=== PATIENT | male | born 1985 | race African-American/Black ===

== ENCOUNTER 2022-04-10 08:50 | Emergency (ER) | payer MEDICARE, MEDICAID, SELFPAY ==
--- NOTE | ~2022-04-10 | CT_ITS ---
EXAMINATION: CT brain wo con DATE: 04/10/2022 13:07 INDICATION: 6 months of head pain/headache TECHNIQUE: Computed tomography (CT) of the head was performed without intravenous contrast. Sagittal and coronal reconstructions were performed. The mA was adjusted according to patient size. Iterative reconstruction technique was employed. The dose-length product was 605.33 mGy-cm. COMPARISON: None FINDINGS: No acute intracranial hemorrhage, acute infarction or abnormal extra axial fluid collection. Ventricl es are normal and symmetric. No mass/mass effect. The orbits, paranasal sinuses and mastoid air cells are normal. IMPRESSION: 1. Normal head CT. Reviewed, dictated and finalized at location L. ANIC FOREMAN IMPRESSION: 1. Normal head CT.
--- NOTE | ~2022-04-10 | CT_ITS ---
EXAMINATION: CT cervical spine wo con DATE: 04/10/2022 13:07 INDICATION: Neck pain. TECHNIQUE: Computed tomography (CT) of the cervical spine was performed without intravenous contrast. Automated exposure control and iterative reconstruction technique were employed. The dose-length pro duct was 600.28 mGy-cm. COMPARISON: None FINDINGS: There is 8 degrees dextrocurvature of cervical spine. There is hypolordosis of cervical spi ne. Vertebral body heights are normal. There is mildly decreased disc height at C2-C3, moderately dec reased disc height at C3-C4, and mildly decreased disc height at C6-C7. The following disc levels are specifically discussed: C2-C3: There is severe right and mild left uncovertebral joint osteoarthritis. There is mild bilatera l facet joint osteoarthritis. There is mild right neural foraminal stenosis. There is no central sanaz l stenosis. C3-C4: There is mild bilateral uncovertebral joint osteoarthritis. There is mild bilateral facet join t osteoarthritis. There is mild left neural foraminal stenosis. There is no central canal stenosis. C4-C5: There is mild bilateral uncovertebral joint osteoarthritis. There is no facet joint osteoarthr itis. There is mild bilateral neural foraminal stenosis. There is no central canal stenosis. C5-C6: There is no uncovertebral joint osteoarthritis. There is no facet joint osteoarthritis. There is no neural foraminal stenosis. There is no central canal stenosis. C6-C7: There is mild right and moderate left uncovertebral joint osteoarthritis. There is mild bilate ral facet joint osteoarthritis. There is mild left neural foraminal stenosis. There is mild central c anal stenosis. C7-T1: There is no uncovertebral joint osteoarthritis. There is moderate bilateral facet joint osteoa rthritis. There is no neural foraminal stenosis. There is no central canal stenosis. IMPRESSION: 1. Moderate cervical spondylosis. Reviewed, dictated and finalized at location A. ITORY SALES EXECUTIVE
--- NOTE | ~2022-04-10 | XR_ITS ---
EXAMINATION: XR knee RT min 4V DATE: 04/10/2022 13:33 INDICATION: Right knee pain. TECHNIQUE: 4 views of right knee were obtained. COMPARISON: None. FINDINGS: Bone alignment is normal. No fracture. There is mild tricompartmental osteoarthritis charac terized by tiny marginal osteophytes. There is ossification of medial collateral ligament proximally. No knee joint effusion. IMPRESSION: 1. Mild right knee osteoarthritis. Reviewed, dictated and finalized at location A. COMPLIANCE SPECIALIST
--- NOTE | ~2022-04-10 | XR_ITS ---
EXAMINATION: XR knee LT min 4V DATE: 04/10/2022 13:33 INDICATION: Left knee pain. TECHNIQUE: 4 views of left knee were obtained. COMPARISON: None. FINDINGS: Bone alignment is normal. No fracture. There is mild tricompartmental osteoarthritis charac terized by tiny osteophytes. No joint space narrowing. No knee joint effusion. IMPRESSION: 1. Mild left knee osteoarthritis. Reviewed, dictated and finalized at location A. LE BAR MOLDER
--- NOTE | ~2022-04-10 | XR_ITS ---
EXAMINATION: XR lumbar spine min 4V DATE: 04/10/2022 13:33 INDICATION: Low back pain for 6 months. TECHNIQUE: 5 views of lumbar spine were obtained. COMPARISON: Lumbar spine radiographs 01/09/2006 FINDINGS: There is 3 degrees dextrocurvature of lumbar spine. There is mild chronic anterior wedging of T10-T12 vertebral bodies. There is mildly decreased disc height at L4-L5. There is severely decrea sed disc height at L5-S1 with endplate remodeling. There is multilevel mild facet joint osteoarthriti s. IMPRESSION: 1. Severe lower lumbar spondylosis. Reviewed, dictated and finalized at location A. NCIAL INSTITUTION VICE PRESIDENT
[2022-04-10 09:01] VITALS: BP 146/86; PULSE 99; RESP 16; TEMP 36.5; O2SAT 100
--- NOTE | 2022-04-10 10:47 | PC.NURSE ---
Ambulatory to room with steady gait. Eating chips on arrival to room. In no distress.
--- NOTE | 2022-04-10 12:55 | ED.BACK ---
HPI - Back Pain/Injury General Chief Complaint: Back Pain/Injury Stated Complaint: knee, back and head pain Time Seen by Provider: 04/10/22 11:27 Source: patient Mode of arrival: ambulatory Limitations: no limitations History of Present Illness HPI Narrative: Patient is a 36 y/o male, w/ PMHx of schizophrenia, who presents to the ED with multiple complaints. Patient reports having pain in his bilateral knees for the past 6 months - 1 year. He states pain is intermittent. Denies injury. He has been using Diclofenac topical gel w/o much relief. He also reports having pain in his lower back and intermittent headaches for the past 1-2 years. Patient has not been evaluated for these symptoms. He denies any worsening of symptoms recently, but just wanted to be evaluated. He has not tried anything for pain today. Patient denies CP, SOB, vision changes, fevers, cough or cold sx's, abdominal pain, N/V, incontinence, numbness, joint swelling. Related Data Allergies Allergy/AdvReac Type Severity Reaction Status Date / Time meloxicam Allergy Dyspnea / Verified 04/10/22 10:52 SOB Review of Systems Review of Systems: CONSTITUTIONAL: Denies fever, chills, or sweats. EYES: Denies visual changes. CARDIOVASCULAR: Denies chest pain. RESPIRATORY: Denies dyspnea. GASTROINTESTINAL: Denies abdominal pain, nausea, vomiting. GENITOURINARY: Denies dysuria or hematuria. SKIN: Denies rash or itching. MUSCULOSKELETAL: See HPI. NEUROLOGIC: See HPI. All systems reviewed & are unremarkable except as noted in HPI and below PMFSH Past Medical History Medical History (Updated 04/10/22 @ 15:44 by Sylvia Mcclendon PA-C) Schizophrenia Surgical History Surgical History (Updated 04/10/22 @ 15:44 by Sylvia Mcclendon PA-C) No pertinent past surgical history Social History Social History (Updated 04/10/22 @ 15:44 by Sylvia Mcclendon PA-C) Smoking status: Never smoker Exam Narrative: GENERAL: Well appearing, morbidly obese, non-toxic, in no acute distress. HEAD: Normocephalic, atraumatic. EYES: PERRLA/EOMI, conjunctiva clear. NECK: Supple. No adenopathy, no masses. Full ROM. RESPIRATORY: Airway patent, respirations nonlabored. Clear to auscultation bilaterally, no rales, rhonchi, wheezing. CARDIOVASCULAR: Regular rate and rhythm without murmurs, rubs, or gallops. Peripheral pulses 2+ and equal bilaterally. ABDOMINAL: Soft, nontender, nondistended, no hepatosplenomegaly. Normoactive BS. MUSCULOSKELETAL: Moves all extremities. Strength/ROM intact without gross deformities. No TTP over anterior knees bilaterally. No edema. No redness or warmth bilaterally. No calf tenderness. No lower extremity edema. Minimal midline lumbar spinal tenderness. No significant midline tenderness in cervical or thoracic spine. No palpable deformities or step offs. SKIN: Warm, dry, normal color. No rashes. NEURO: A&O X3. Speech clear. Cranial nerves II-XII grossly intact. Steady gait. No ataxic movements. No focal deficits. PSYCHIATRIC: Somewhat flat affect. Normal interaction. Course Vital Signs Vital signs: Vital Signs Temperature 97.7 F 04/10/22 09:01 Pulse Rate 99 04/10/22 09:01 Respiratory Rate 16 04/10/22 09:01 Blood Pressure 146/86 H 04/10/22 09:01 Pulse Oximetry 100 04/10/22 09:01 Oxygen Delivery Room Air 04/10/22 09:01 Temperature 97.7 F 04/10/22 09:01 Pulse Rate 99 04/10/22 09:01 Respiratory Rate 16 04/10/22 09:01 Blood Pressure 146/86 H 04/10/22 09:01 Pulse Oximetry 100 04/10/22 09:01 Oxygen Delivery Room Air 04/10/22 09:01 MDM - Back Pain/Injury MDM Narrative Medical decision making narrative: Patient presented to ED with multiple complaints, various areas of pain, ongoing over the last 6 months to 2 years. No worsening of symptoms today, patient just decided to be evaluated. Vitals stable. Exam unremarkable. No redness, warmth, swelling, or tenderness of knees or lower extremities bilater
[2022-04-10 14:02] LABS: Basophils Percent Auto 0.7 % (0.2-1.2); Eosinophils Absolute Auto 0.2 K/mm3 (0-0.3); Eosinophils Percent Auto 4.7 % (0-4.4); Hematocrit 39.8 % (42.0-52.0); Hemoglobin 12.9 g/dL (14.0-18.0); Immature Granulocyte Absolute 0.01 K/mm3 (0.00-0.031); Immature Granulocyte Percent A 0.2 % (0-0.5); Lymphocytes Absolute Auto 1.91 K/mm3 (0.9-3.2); Lymphocytes Percent Auto 42.7 % (18.3-44.2); Mean Corpuscular HGB Conc 32.4 g/dl (32-36); Mean Corpuscular Volume 92.6 fl (80-100); Mean Platelet Volume 9.7 fl (7.4-10.4); Monocytes Absolute Auto 0.5 K/mm3 (0.1-0.6); Monocytes Percent Auto 11.4 % (2.6-8.5); Neutrophils Absolute Auto 1.8 K/mm3 (1.3-6.7); Neutrophils Percent Auto 40.3 % (45.5-73.1); Platelet Count Result 228 k/mm3 (150-375); Red Cell Distribution Width 15.1 % (11.5-14.5); White Blood Count 4.5 K/mm3 (4.5-10.0)
[2022-04-10 14:12] LABS: Alanine Aminotransferase 85 U/L (6-50); Albumin Level 3.5 g/dL (3.5-5.1); Alkaline Phosphatase 63 U/L (38-126); Anion Gap 4 mmol/L (8-16); Aspartate Amino Transferase 64 U/L (17-59); Bilirubin,Total 0.3 mg/dL (0.2-1.3); Blood Urea Nitrogen 9 mg/dL (9-20); Calcium 8.6 mg/dL (8.4-10.2); Carbon Dioxide 25 mmol/L (22-30); Chloride 111 mmol/L (98-107); Estimated CRCL calculation 186 ml/min; Estimated Glomerular Filt Rate > 60; Glucose 118 mg/dL (65-110); Potassium 3.8 mmol/L (3.4-5.0); Sodium 140 mmol/L (137-145)
[2022-04-10] MEDS: IBUPROFEN 600 MG TABLET PO (15:39)
== END 2022-04-10 15:48 | disposition home or self-care (01) ==
PROVIDERS: Emergency Provider Physician Assistant; PCP Internal Medicine
DX: M17.0 Bilateral primary osteoarthritis of knee (principal); M54.50 Low back pain, unspecified; R51.9 Headache, unspecified; E66.01 Morbid (severe) obesity due to excess calories; Z68.41 Body mass index [BMI] 40.0-44.9, adult
CPT/HCPCS: 36415; 70450; 72110; 72125; 73564; 80053; 85025; 99284; A9270

== ENCOUNTER 2023-10-27 22:38 | Emergency (ER) | payer MEDICARE, SELFPAY ==
[2023-10-27 22:45] VITALS: BP 145/94; PULSE 88; RESP 18; TEMP 36.2; O2SAT 97
[2023-10-28 01:18] VITALS: BP 132/72; PULSE 77; RESP 16; RESP 17; O2SAT 96; O2SAT 97
[2023-10-28] MEDS: ONDANSETRON HCL ODT 4 MG TABLET PO (01:32)
[2023-10-28] MEDS: predniSONE 20 MG TABLET 40 MG PO (01:32)
[2023-10-28] MEDS: ACETAMINOPHEN 500 MG TABLET 1000 MG PO (01:32)
[2023-10-28] MEDS: ALBUTEROL SULFATE NEB 2.5 MG/3 ML INH 15 MG INHALATION (01:35)
[2023-10-28] MEDS: IPRATROPIUM BR 0.02% INH SOLN 0.5 MG/2.5 ML VIAL 1 MG INHALATION (01:35)
[2023-10-28 01:45] VITALS: PULSE 79; RESP 18
[2023-10-28 02:21] LABS: Influenza A QL RT-PCR Negative (Negative); Influenza B QL RT-PCR Negative (Negative); RSV RNA, RT-PCR Negative (Negative); SARS-CoV-2 RNA PCR Negative (Negative)
--- NOTE | 2023-10-28 02:58 | ED.GENADULT ---
HPI - General Adult General Chief complaint: Unspecified Stated complaint: bodyaches Time Seen by Provider: 10/28/23 01:16 History of Present Illness HPI narrative: Patient presenting with body aches, nausea, cough for almost 2 weeks. Daily smoker. Related Data Allergies Allergy/AdvReac Type Severity Reaction Status Date / Time meloxicam Allergy Dyspnea / Verified 10/28/23 01:17 SOB Review of Systems Review of Systems: All systems reviewed & are unremarkable except as noted in HPI and below PMFSH Past Medical History Medical History (Updated 10/28/23 @ 03:11 by Zoë Fonseca MD) Schizophrenia Surgical History Surgical History (Updated 04/10/22 @ 15:44 by Sylvia Mcclendon PA-C) No pertinent past surgical history Social History Social History (Updated 04/10/22 @ 15:44 by Sylvia Mcclendon PA-C) Smoking status: Never smoker Exam Narrative: EXAMINATION OF ORGAN SYSTEMS/BODY AREAS: Constitutional: Vital signs per nursing GENERAL: Sleepy, does not appear ill HEAD: Normal with no signs of head trauma. EYES: EOMI, conjunctiva normal ENT: Hearing grossly intact LUNGS: Wheezing bilaterally HEART: [Regular rate and rhythm] ABD: [Soft], [nontender to palpation] EXT: Normal range of motion SKIN: [No rashes or lesions.] NEURO: [Sleepy but wakes up to answer questions. No gross focal sensory or strength deficits.] PSYCH: Normal affect Course Vital Signs Vital signs: Vital Signs Temperature 97.2 F L 10/27/23 22:45 Pulse Rate 88 10/27/23 22:45 Respiratory Rate 18 10/27/23 22:45 Blood Pressure 145/94 H 10/27/23 22:45 Pulse Oximetry 97 10/27/23 22:45 Oxygen Delivery Room Air 10/27/23 22:45 Temperature 97.2 F L 10/27/23 22:45 Pulse Rate 79 10/28/23 01:45 Respiratory Rate 18 10/28/23 01:45 Blood Pressure 132/72 10/28/23 01:18 Pulse Oximetry 96 10/28/23 01:18 Oxygen Delivery Room Air 10/27/23 22:45 Medical Decision Making [facility] Narrative Medical decision making narrative: ED COURSE AND MEDICAL DECISION MAKIN-year-old patient with acute dyspnea and wheezing likely due to acute COPD exacerbation or acute bronchitis based on history and exam. Patient is hemodynamically stable. Nebulizer treatments are started and steroids given orally. Patient is sleepy with states that they had just taken sedating medications before coming here. Patient monitored in the ED for a couple of hours and on reevaluation is feeling significantly better. No respiratory distress or accessory muscle use. Good air movement bilateral lungs. Prescriptions for [albuterol and steroid course] provided. He is given strict return precautions and patient is discharged in stable/improved condition. Vital Signs Vital Signs: Vital Signs Temperature 97.2 F L 10/27/23 22:45 Pulse Rate 88 10/27/23 22:45 Respiratory Rate 18 10/27/23 22:45 Blood Pressure 145/94 H 10/27/23 22:45 Pulse Oximetry 97 10/27/23 22:45 Oxygen Delivery Room Air 10/27/23 22:45 Temperature 97.2 F L 10/27/23 22:45 Pulse Rate 79 10/28/23 01:45 Respiratory Rate 18 10/28/23 01:45 Blood Pressure 132/72 10/28/23 01:18 Pulse Oximetry 96 10/28/23 01:18 Oxygen Delivery Room Air 10/27/23 22:45 Lab Data Labs: Lab Results 10/28/23 Range/Units 01:29 Influenza A (RT-PCR) Negative (Negative) Influenza B (RT-PCR) Negative (Negative) RSV (RT-PCR) Negative (Negative) SARS-CoV-2 RNA (RT-PCR) Negative (Negative) Discharge Plan Discharge Clinical Impression: Acute bronchitis Patient Disposition: Home, Self-Care Condition: Stable Instructions: Antibiotic Form, Acute Bronchitis (ED) Additional Instructions: Please stop smoking cigarettes. Follow up with primary care doctor, come back to the ER for any further issues. Take the medications as prescribed Prescriptions: New prednisone 20 mg tablet 40 mg PO DAILY 5 Days
[2023-10-28 03:20] VITALS: BP 149/83; PULSE 80; RESP 17; TEMP 36.7; O2SAT 100
== END 2023-10-28 03:22 | disposition home or self-care (01) ==
PROVIDERS: Emergency Provider Emergency Medicine; PCP Internal Medicine
DX: J20.9 Acute bronchitis, unspecified (principal); Z20.822 Contact with and (suspected) exposure to COVID-19; F17.210 Nicotine dependence, cigarettes, uncomplicated
CPT/HCPCS: 87637; 94640; 99283; A9270; J7512

== ENCOUNTER 2023-11-20 21:13 | Emergency (ER) | payer MEDICARE, SELFPAY ==
--- NOTE | ~2023-11-20 | XR_ITS ---
EXAMINATION: XR knee LT min 4V DATE: 11/20/2023 21:36 INDICATION: Left knee pain. TECHNIQUE: 4 views of left knee were obtained. COMPARISON: Left knee radiographs 04/10/2022 FINDINGS: Alignment is normal. No fracture. There is mild tricompartmental osteoarthritis. There is a small knee joint effusion. IMPRESSION: 1. Mild left knee osteoarthritis. 2. Small left knee joint effusion. Reviewed, dictated and finalized at location A.
[2023-11-20 21:43] VITALS: BP 150/90; PULSE 88; RESP 18; TEMP 36.4; O2SAT 99
--- NOTE | 2023-11-21 01:39 | PC.NURSE ---
Addendum entered by Natividad Estevez RN 11/21/23 01:41: Pt was also not here when called for registration earlier. Assume pt LWBS. Original Note: No answer when called for VS.
== END 2023-11-21 01:39 | disposition left against medical advice (07) ==
LOC: ANHED 11-21 01:46
PROVIDERS: Emergency Provider Emergency Medicine
DX: M25.562 Pain in left knee (principal); Z53.21 Procedure and treatment not carried out due to patient leaving prior to being seen by health care provider
CPT/HCPCS: 73564; 99199

== ENCOUNTER 2023-12-21 19:48 | Emergency (ER) | payer MEDICARE, SELFPAY ==
[2023-12-21 19:50] VITALS: BP 149/95; PULSE 102; RESP 16; TEMP 37.1; O2SAT 97
[2023-12-21 20:30] LABS: Add Urine Microscopic? YES; Appearance Urine Clear (Clear); Bacteria Urine None Seen /hpf; Bilirubin Urine Negative (Negative); Blood Urine Negative (Negative); Color Urine Yellow (Yellow); Glucose Urine UA Negative (Negative); Ketones Urine Negative (Negative); Leukocyte Esterase Ur 1+ LEU/UL (Negative); Nitrate Urine Negative (Negative); Non Pathogenic Casts 0-2; Protein Urine Negative (Negative); RBC Urine 0-2 /hpf (0-2); Specific Grav Ur 1.013 (1.001-1.035); Squamous Epithelial Cell Urine None Seen /hpf (Few); Urobilinogen Urine 0.2 mg/dL (<2.0); pH Urine 7.5 (5.0-9.0)
[2023-12-21 21:04] LABS: Basophils Percent Auto 0.3 % (0.2-1.2); Eosinophils Absolute Auto 0.3 K/mm3 (0-0.3); Eosinophils Percent Auto 3.6 % (0-4.4); Hematocrit 38.6 % (42.0-52.0); Hemoglobin 12.5 g/dL (14.0-18.0); Immature Granulocyte Absolute 0.02 K/mm3 (0.00-0.031); Immature Granulocyte Percent A 0.3 % (0-0.5); Lymphocytes Percent Auto 30.6 % (18.3-44.2); Mean Corpuscular HGB Conc 32.4 g/dl (32-36); Mean Corpuscular Hemoglobin 30.2 pg (26-34); Mean Corpuscular Volume 93.2 fl (80-100); Mean Platelet Volume 9.9 fl (7.4-10.4); Monocytes Absolute Auto 0.6 K/mm3 (0.1-0.6); Neutrophils Absolute Auto 3.9 K/mm3 (1.3-6.7); Neutrophils Percent Auto 57.2 % (45.5-73.1); Platelet Count Result 263 k/mm3 (150-375); Red Blood Count 4.14 M/mm3 (4.6-6.20); Red Cell Distribution Width 15.1 % (11.5-14.5); White Blood Count 6.9 K/mm3 (4.5-10.0)
[2023-12-21 21:14] LABS: Alanine Aminotransferase 19 U/L (6-50); Albumin Level 3.8 g/dL (3.5-5.1); Alkaline Phosphatase 74 U/L (38-126); Anion Gap 6 mmol/L (4-12); Aspartate Amino Transferase 23 U/L (17-59); Bilirubin,Total 0.2 mg/dL (0.2-1.3); Blood Urea Nitrogen 11 mg/dL (9-20); Carbon Dioxide 26 mmol/L (22-30); Chloride 104 mmol/L (98-107); Estimated Glomerular Filt Rate > 60; Glucose 168 mg/dL (65-110); Lipase 37 U/L (23-300); Potassium 3.9 mmol/L (3.4-5.0); Sodium 136 mmol/L (137-145)
--- NOTE | 2023-12-21 21:22 | ED.GENADULT ---
HPI - General Adult General Chief complaint: Unspecified Stated complaint: invisible feces , clear BM Time Seen by Provider: 12/21/23 19:56 Source: patient Mode of arrival: ambulatory Limitations: no limitations History of Present Illness HPI narrative: 38-year-old with a history of schizophrenia here with a complaint of upper abdominal pain for past 6 months. He states he is bloated at times. Patient when ever he tries to have BM , nothing come out feels like gas . all these symptoms are on going for quite some time.He also headache ,leg pain and knee pain Onset (ago): unknown Location: head, abdomen and lower extremity Radiation: non-radiation Severity: moderate Quality: aching Relieving factors: none Exacerbating factors: none Associated symptoms: denies other symptoms Related Data Allergies Allergy/AdvReac Type Severity Reaction Status Date / Time meloxicam Allergy Dyspnea / Verified 12/21/23 19:58 SOB Review of Systems Review of Systems: All systems reviewed & are unremarkable except as noted in HPI and below Constitutional: Constitutional: Reports no additional constitutional complaints Eyes: Eyes: Reports no additional eye complaints ENT: Reports system reviewed and no additional complaints, except as documented Cardiovascular: Cardiovascular: Reports no additional cardiovascular complaints Respiratory: Respiratory: Reports no additional respiratory complaints Gastrointestinal: Gastrointestinal: Reports no additional gastrointestinal complaints Musculoskeletal: Musculoskeletal: Reports as per HPI Neurologic: Reports system reviewed and no additional complaints, except as documented Psychiatric: Psychiatric: Reports as per HPI [facility] Past Medical History Medical History Schizophrenia Surgical History Surgical History No pertinent past surgical history Social History Social History Smoking status: Never smoker Exam Narrative: GENERAL: WELL-APPEARING, MORBIDLY OBESE , AND IN NO ACUTE DISTRESS. HEAD: NORMOCEPHALIC, ATRAUMATIC. EYES: PERRLA AND EOMI. NECK: SUPPLE. CHEST: CLEAR TO AUSCULTATION. NO RESPIRATORY DISTRESS. HEART: REGULAR RATE AND RHYTHM. NO MURMUR HEARD. NORMAL PERIPHERAL PULSES. ABDOMEN: SOFT, NONTENDER, NONDISTENDED, NORMAL ACTIVE BOWEL SOUNDS. EXTREMITIES: NORMAL RANGE OF MOTION. NO EDEMA. SKIN: WARM, DRY, NO RASH. NEURO: NO FOCAL DEFICITS. ALERT AND ORIENTED X3. PSYCH: NORMAL MOOD AND AFFECT. Course Course Emergency Course: DISTRESS PATIENT COMFORTABLY RESTING ON BED IN NO DISCOMFORT DID EXPLAIN TO HIM ABOUT HIS LAB WORK RELATED ADVISED HIM TO CONTINUE TO TAKE NEXIUM PRESCRIBED, FOLLOW-UP WITH HIS PRIMARY DOCTOR IN Vital Signs Vital signs: Vital Signs Temperature 37.1 C 12/21/23 19:50 Pulse Rate 102 H 12/21/23 19:50 Respiratory Rate 16 12/21/23 19:50 Blood Pressure 149/95 H 12/21/23 19:50 Pulse Oximetry 97 12/21/23 19:50 Temperature 37.1 C 12/21/23 19:50 Pulse Rate 102 H 12/21/23 19:50 Respiratory Rate 16 12/21/23 19:50 Blood Pressure 149/95 H 12/21/23 19:50 Pulse Oximetry 97 12/21/23 19:50 Medical Decision Making MDM Narrative Medical decision making narrative: His foot 38-year-old with a history of schizophrenia presents with multiple complaints however 1 of his main complaint is upper abdominal pain will do abdominal workup. My differential) gastritis, pancreatitis, gallbladder disease. Could be nonspecific Vital Signs Vital Signs: Vital Signs Temperature 37.1 C 12/21/23 19:50 Pulse Rate 102 H 12/21/23 19:50 Respiratory Rate 16 12/21/23 19:50 Blood Pressure 149/95 H 12/21/23 19:50 Pulse Oximetry 97 12/21/23 19:50 Temperature 37.1 C 12/21/23 19:50 Pulse Rate 102 H 12/21/23 19:50 Respiratory Rate 16 12/21/23 19:50
== END 2023-12-21 22:17 | disposition home or self-care (01) ==
PROVIDERS: Emergency Provider Family Medicine
DX: K21.9 Gastro-esophageal reflux disease without esophagitis (principal)
CPT/HCPCS: 36415; 80053; 81001; 83690; 85025; 87086; 99283

== ENCOUNTER 2024-08-01 19:51 | Emergency (ER) | payer MEDICARE, MEDICAID, SELFPAY ==
--- NOTE | ~2024-08-01 | XR_ITS ---
AP view of the pelvis and AP and lateral views of the right hip Clinical history: Pain Findings: No acute fracture or dislocation is seen. Osseous alignment is anatomic. Bilateral hip and SI joint spaces are preserved. Soft tissues are unremarkable. Impression: No significant abnormality is seen. Reviewed, dictated and finalized at [facility]. Impression: No significant abnormality is seen.
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
--- NOTE | ~2024-08-01 | CT_ITS ---
Noncontrast CT scan of the cervical spine Technique: Multiple contiguous axial [address] images of the cervical spine were obtained and rec onstructed in 2D sagittal and coronal planes on the acquisition scanner. Dose reduction technique was used on this scan by utilizing automated exposure control, adjustment of the mA and/or kV according to patient size. The dose-length product (DLP) was 653.86 mGy-cm. Clinical History: Pain COMPARISON: 04/10/2022 Findings: No fractures or dislocations. There is straightening of the normal cervical lordosis. Ther e is moderate degenerative disc change at C3-C4. There is probable disc osteophyte complex at C3-C4 w ith mild to moderate canal stenosis at this level. No prevertebral soft tissue swelling. Impression: No fracture or subluxation of the cervical spine. Degenerative change at C3-C4 level, as above. Reviewed, dictated and finalized at [facility]. Impression: No fracture or subluxation of the cervical spine. Degenerative change at C3-C4 level, as above.
--- NOTE | ~2024-08-01 | XR_ITS ---
Right Knee Technique: AP, lateral, and oblique views were obtained. Clinical History: Pain Findings: No fracture or dislocation is seen. Osseous alignment is anatomic. Joint spaces are preserv ed without degenerative or erosive change. Soft tissues are unremarkable. No joint effusion is seen. Impression: Unremarkable right knee radiographs. Reviewed, dictated and finalized at [facility]. Impression: Unremarkable right knee radiographs.
--- OUTSIDE RECORDS SUMMARY | 2024-08-01 19:54 | XMS_ITS | Clinical Summary ---
Author Organization [facility] Address [address] [place] [address] Care Team Providers Care Slab Grinder Name Role Phone Andrey Boyd MD Primary Care Provider + Allergies Active Allergy Reactions Criticality Noted Date Comments Meloxicam Angioedema High 02/06/2022 Medications albuterol HFA (PROVENTIL HFA,VENTOLIN HFA,PROAIR HFA) 90 mcg/actuation inhalerIndicati ons:Viral URI with cough Inhale 2 puffs every 6 (six) hours as needed for shortness of breath 18 g Active Active Problems No known active problems Social History Tobacco Use Types Packs/Day Years Used Date Smoking Tobacco: Every Day Cigarettes Tobacco Cessation:Ready to Q uit: No; Counseling Given: Yes Sex and Gender Information Value Date Recorded Sex Assigned at Not on file Legal Sex Male 9:09 AM ELEVATOR ATTENDANT Gender Identity Not on file Sexual Orientation Not on file Obstetrics History Last Filed Vital Signs Vital Sign Reading Time Taken Comments Blood Pressure 122/80 02/06/2022 12:13 PM ELEVATOR ATTENDANT Pulse 76 02/06/2022 12:13 PM ELEVATOR ATTENDANT Temperature 36.9 C (98.4 F) 02/06/2022 12:13 PM ELEVATOR ATTENDANT Respiratory Rate 16 02/06/2022 12:13 PM ELEVATOR ATTENDANT Oxygen Saturation 98% 02/06/2022 12:13 PM ELEVATOR ATTENDANT Inhaled Oxygen Concentration - - Weight 135.6 kg (299 lb) 02/06/2022 12:13 PM ELEVATOR ATTENDANT Height 182.9 cm (6') 02/06/2022 12:13 PM ELEVATOR ATTENDANT Body Mass Index 40.55 02/06/2022 12:13 PM ELEVATOR ATTENDANT Plan of Treatment Health Maintenance Due Date Last Done Comments Depression Screening 1985 Hepatitis C Screening 1985 DTaP/Tdap/Td Vaccine (6 - Tdap) 1996 09/29/1990, 11/25/1987, 03/26/1986, Additional history exists Varicella Vaccines (1 of 2 - 13+ 2-dose series) 1998 Regular Well Visit/Exam 18-64 09/22/2003 Pneumococcal vaccine <65 (1 of 2 - PCV) 2004 Influenza Vaccine (Season Ended) 2024 Hepatitis B Screening Completed 02/23/2024, 000 HPV Vaccines Aged Out No longer eligi ble based on patient's age to complete this topic Insurance MEDICARE ADVANTAGE MEDICARE ADVANTAGE Care Teams Slab Grinder Relationship Specialty Start Date End Date Andrey Boyd MD [address] [id number] PCP - General Internal Medicine 02/06/22
--- OUTSIDE RECORDS SUMMARY | 2024-08-01 19:54 | XMS_ITS | Patient Health Record ---
Author Organization [facility] Address [address] [place] [address] Care Team Providers Care Ancillary Specialist Name Role Phone Nasreen Hook Primary Care Provider [phone] Ignacia Lawton Unavailable [phone] Allergies Allergen (clinical drug ingredient) Drug/Non Drug Allergy documented on EMR Reaction Allergy Type Onset Date Status No Known Drug Allergy Unknown Drug Allergy Active Reason For Referral No Information Medications Medication SIG (Take, Route, Frequency, Duration) Notes Start Date End Date Status Famotidine 20 MG 2 tablet Orally Once a day Active Benztropine Mesylate 1 MG 1.5 tablet at bedtime Orally Once a day for 30 days Active PROzac 40 MG 2 capsule Orally Onc e a day for 30 days Active ZyPREXA 20 MG 1 tablet at bedtime Orally Once a day for 30 days Active traZODone HCl 100 MG 1 tablet at bedtime Orally Once a day for 30 days Active QUEtiapine Fumarate 50 MG 1 tablet morni ng and afternoon Orally twice a day for 30 days Active OLANZapine 2.5 MG 1 tablet Orally Once a day for 30 days 07/11/2023 Active OLANZapine 2.5 MG 1 tablet as needed Orally Once a day for 30 days As needed 10/03/2023 Active Social History Tobacco Use: Social History Observation Description Date Details (start date - stop date) Current Smoker NA - NA Sex Assigned At : Social History Observation Description Sex Assigned At Female Tobacco Control (Standard) Question Answer Notes Tobacco use: Current smoker How often do you smoke cigarettes? Every day How many cigarettes a day do you smoke? 11-20 Problems Problem Type SNOMED Code ICD Code Onset Dates Problem Status W/U Status Risk Notes Problem Tobacco user (427612022) Nicotine dependence, unspecified, uncomplicated (F17.200) Active confirmed Problem 44877061 Paranoid schizophrenia (F20.0) Active confirmed Problem Over weight (E66.3) Active confirmed Vital Signs Heart Rate 86 /min 07/09/2024 Temperature 97.4 degrees Fahrenheit 07/09/2024 Oximetry 97 % 07/09/2024 Blood pressure diastolic 76 mm Hg 07/09/2024 Height 72 in 07/09/2024 Blood pressure systolic 136 mm Hg 07/09/2024 Weight 425.6 lbs 07/09/2024 BMI 57.72 kg/m2 07/09/2024 Encounters Encounter Location Date Provider Diagnosis [facility] [address] [facility] [address] 10/03/2023 Nasreen Hook Paranoid schizophrenia F20.[address] [address] [place] [address] 12/26/2023 Nasreen Hook Paranoid schizophrenia F20.0 and Nicotine dependence, unspecified, uncomplicated F17.200 [facility] [place] [address] 04/16/2024 Nasreen Hook Paranoid schizophrenia F20.0 [address] [address] [place] [address] 07/09/2024 Nasreen Hook Paranoid schizophrenia F20.0 and Over weight E66.3 Assessments Encounter Date Diagnosis (ICD Code) Assessment Notes Treatment Notes Treatment Clinical Notes Section Notes 10/03/2023 Paranoid schizophrenia (ICD-10 - F20.0) Add an as needed dose of olanzapine to help with symptoms during the day. Reports it would be helpful to have, especially when at work. Continue other medications. May self-administer medications or be administered own oral medications per [place] protocols. Provided informed consent with understanding of side effects, adverse effects, risks and benefits as well as alternative treatments as previously discussed and with the above recommended medications & other aspects of the treatment program. Agrees to return sooner if symptoms worsen or suicidal or homicidal ideations occur. 12/26/2023 Paranoid schizophrenia (ICD-10 - F20.0) Increase Benztropine to 1.5 tabs at bedtime for side effects. Continue services as scheduled. Labs completed recently. May self-administer medications or be administered own oral medications per [place] protocols. Provided informed consent with understanding of side effects, adverse effects, risks and benefits as well as alternative treatments as previously discussed and with the above recommended medications & other aspects of the treatment program. Agrees to return sooner if symptoms worsen or suicidal or homicidal ideations occur. 04/16/2024 Paranoid schizophrenia (ICD-10 - F20.0) Continue current medications. Reviewed Prescription Monitoring program. Continue services as scheduled. Labs completed recently. May self-administer medications or be administered own oral medications per [place] protocols. Provided informed consent with understanding of side effects, adverse effects, risks and benefits as well as alternative treatments as previously discussed and with the above recommended medications & other aspects of the treatment program. Agrees to return sooner if symptoms worsen or suicidal or homicidal ideations occur. 07/09/2024 Paranoid schizophrenia (ICD-10 - F20.0) Needs a letter stating medication can cause sedation for work. Continue current medications. Continue services as scheduled. Labs completed recently. May self-administer medications or be administered own oral medications per [employer] protocols. Provided informed consent with understanding of side effects, adverse effects, risks and benefits as well as alternative treatments as previously discussed and with the above recommended medications & other aspects of the treatment program. Agrees to return sooner if symptoms worsen or suicidal or homicidal ideations occur. 07/09/2024 Over weight (ICD-10 - E66.3) 12/26/2023 Nicotine dependence, unspecified, uncomplicated (ICD-10 - F17.200) Plan Of Treatment No Information Insurance Providers Payer Name Payer Address Payer Phone Subscriber Number Group Number Insured Name Patient Relationship to Insured Coverage Start Date Coverage End Date [employer] [address] [address] [place] [address] [id number] Mati Singh Self - patient is the insured 3 3 [facility] Medicare Assure [address] [address] [place] [address] [id number] Mati Singh Self - patient is the insured [address] [place] [address] [id number] SinghBinduMati Self - patient is the insured 1 [address] [place] [address] [id number] Mati Singh Self - patient is the insured 4 [facility] [address] [address] [place] [address] [id number] Mati Singh Self - patient is the insured 9 3 MEDICARE PART A [address] [place] [phone] [id number] Mati Singh Self - patient is the insured 1 3 [facility] [address] [address] [place] [address] [id number] Mati Singh Self - patient is the insured 3 3 Medications Administered Medication Instructions Date of Administration Dosage Notes Invega Sustenna 09/29/2015 234 mg EXP: 03/18/17 Lot: [id number] Engineering Secretary: Aidin Patient tolerated injection well. Invega Sustenna 10/27/2015 234 mg EXP 05/2017 LOT 05/2017 TOWER TRUCK DRIVER: Aidin Pt tolerated injection well. No questions or concerns verbalized at this time. Invega Sustenna 11/22/2015 234 mg Exp: 05/2017 Lot: [id number] Engineering Secretary: Corrine Patient tolerated the injection well. Invega Sustenna 12/21/2015 234 mg Given in right deltoid per patient preference. Patient tolerated injection well. EXP 06/2017 LOT: [id number] Engineering Secretary: Aidin Invega Sustenna 01/20/2016 234 mg Engineering Secretary-Corrine Client tolerated injection well. Invega Sustenna 02/20/2016 234 mg Engineering Secretary-Corrine Client tolerated injection well. Invega Sustenna 10/23/2016 234 mg Engineering Secretary: Aidin Patient tolerated well. Invega Sustenna 04/25/2017 156 mg Manufact Corrinept tolerated well. Invega Sustenna 05/16/2017 234 mg Manufact Corrine pt tolerated well. Invega Sustenna 07/09/2017 234 mg Exp: 11/2018 Lot: [id number] Engineering Secretary: Corrine Pt tolerated the injection well and denies questions or concerns at this time. Invega Sustenna 01/02/2018 234 mg Engineering Secretary: Aidin Pt tolerated the injection well. Denies questions or concerns Invega Sustenna 01/30/2018 234 mg Engineering Secretary: Aidin Pt tolerated the injection well. Denies questions or concerns. Invega Sustenna 02/28/2018 234 mg Manufact Corrine, pt tolerated well. Invega Sustenna 03/27/2018 234 mg Manufact Corrine, pt tolerated well. Medical (General) History Surgical History Surgery Date(Month/Year) finger and toe surgery Hospitalization History Reason Date(Month/Year) mental health
--- OUTSIDE RECORDS SUMMARY | 2024-08-01 19:54 | XMS_ITS | Clinical Summary ---
Author Organization [facility] Address [address] [place] [address] Care Team Providers Care Crew Chief Name Role Phone Ashley Edmonds MD Primary Care Provider Source Comments [facility],non-owned Affiliates and Associated Physician Practices is amultiple site organization consisting of ambulatory clinics and hospital sitesin [place], [place], [place] and [place]. This disclosure is being madepursuant to the Care Everywhere program and may not contain all information available regarding this patient. Last updated 17.[facility] Allergies Active Allergy Reactions Criticality Noted Date Comments maple syrup [Other] Unknown 01/25/2019 Norepinephrine Dizziness 01/25/2019 Oat Grain (Diagnostic) Rash Medium 01/25/2019 Pork Derived Products Other 01/25/2019 Per patient causes worms Rice Unknown 01/25/2019 Soybean Allergy Cough 01/25/2019 Baldwin Rash Medium 01/25/2019 Wheat Bran Rash Medium 01/25/2019 Medications * Be aware that medications may not be up to date on this document. Alwaysverify current medications with the patient. amoxicillin (AMOXIL) 500 MG capsule Take 500 mg by mouth every 8 hours Active benztropine (COGENTIN) 1 MG tablet Take 1 mg by mouth once daily Active haloperidol (HALDOL) 0.5 MG tablet Take 0.5 mg by mouth every 6 hours as needed for Agitation Active levothyroxine (SYNTHROID) 25 MCG tablet Take 25 mcg by mouth daily before breakfast Active traZODone (DESYREL) 150 MG tablet Take 150 mg by mouth at bedtime Active meclizine (ANTIVERT) 25 MG tablet Take 1 tablet by mouth 3 times daily as needed for Dizziness 90 tablet 9 Active Active Problems Problem Noted Date Diagnosed Date Vertigo 01/25/2019 Social History Tobacco Use Types Packs/Day Years Used Date Smoking Tobacco: Every Day Cigarettes 1 15 Smokeless Tobacco: Never Alcohol Use Standard Drinks/Week Comments Not Currently 0 (1 standard drink = 0.6 oz pur e alcohol) AUDIT-C Answer Date Recorded Frequency of Alcohol Consumption Never 01/26/2019 Average Number of Drinks Patient declined 2018 Frequency of Binge Drinking Never 01/16 Sex and Gender Information Value Date Recorded Sex Assigned at Not on file Legal Sex Male 5:34 AM HEALTH AND SAFETY INSTRUCTOR Gender Identity Not on file Sexual Orientation Not on file Occupation Industry Job Start Date Job End Date DISABLED Not on file Not on file Not on file Last Filed Vital Signs Vital Sign Reading Time Taken Comments Blood Pressure 128/62 01/29/2019 12:00 PM HEALTH AND SAFETY INSTRUCTOR Pulse 59 01/29/2019 12:00 PM HEALTH AND SAFETY INSTRUCTOR Temperature 36.7 C (98.1 F) 01/29/2019 12:00 PM HEALTH AND SAFETY INSTRUCTOR Respiratory Rate 20 01/29/2019 12:00 PM HEALTH AND SAFETY INSTRUCTOR Oxygen Saturation 96% 01/29/2019 12:00 PM HEALTH AND SAFETY INSTRUCTOR Inhaled Oxygen Concentration - - Weight 163.3 kg (360 lb) 01/26/2019 12:52 AM HEALTH AND SAFETY INSTRUCTOR Height 182.9 cm (6') 01/26/2019 12:46 AM HEALTH AND SAFETY INSTRUCTOR Body Mass Index 48.82 01/26/2019 12:46 AM HEALTH AND SAFETY INSTRUCTOR Plan of Treatment Health Maintenance Due Date Last Done Comments DTAP/TDAP/TD VACCINES (1 - Tdap) 2004 HEPATITIS B VACCINE (1 of 3 - 19+ 3-dose series) 2004 PNEUMOCOCCAL VACCINE (1 of 2 - PCV) 2004 COVID-19 VACCINE ( - 2023-2 5 season) 2023 DEPRESSION SCREENING 03/18/2024 INFLUENZA VACCINE (Season Ended) 2024 ZOSTER VACCINE (1 of 2) 09/22/2035 HEPATITIS C SCREENING Completed 01/26/2019 HIV SCREENING Completed 01/26/2019 HIB VACCINE Aged Out No longer eligi ble based on patient's age to complete this topic HPV VACCINE Aged Out No longer eligi ble based on patient's age to complete this topic MENINGOCOCCAL (Group B) VACC INE SHARED DECISION-MAKING Aged Out No longer eligibl e based on patient's age to complete this topic MENINGOCOCCAL GROUPS A/C/Y/W VACCINE Aged Out No longer eligible b ased on patient's age to complete this topic Procedures Procedure Name Priority Date/Time Associated Diagnosis Comments HEPATITIS C AB SCREEN RFLX NAAT QUANT Routine 01/26/2019 10:55 AM HEALTH AND SAFETY INSTRUCTOR HIV-1 HIV-2 ANTIGEN/ANTIBODY Routine 01/26/2019 10:55 AM HEALTH AND SAFETY INSTRUCTOR from Last 3 Months or Most Recently Relevant to Health Maintenance Results * HIV-1 HIV-2 ANTIGEN/ANTIBODY (01/26/2019 10:55 AM HEALTH AND SAFETY INSTRUCTOR) HIV Antigen/Antibod y 1 & 2 Non-reacti ve Non-react nessa 01/26/2019 1:02 PM HEALTH AND SAFETY INSTRUCTOR [facility] Comment: Neither HIV-1 p24 Antigen nor HIV-1/HIV-2 Antibodies are detected. Blood BLOOD SPECIMEN / Unknown Lab Venipuncture / Unknown 01/26/2019 10:55 AM HEALTH AND SAFETY INSTRUCTOR 01/26/2019 12:00 PM HEALTH AND SAFETY INSTRUCTOR Silas Zhao MD LAB - HEMATOLOGY ORDERABLES Harriet l Result [address] [phone] * HEPATITIS C AB SCREEN RFLX NAAT QUANT (01/26/2019 10:55 AM HEALTH AND SAFETY INSTRUCTOR) Hepatitis C Antibody Non-react nessa Non-reac tive 01/26/2019 1:02 PM HEALTH AND SAFETY INSTRUCTOR [facility] Comment: Hepatitis C Antibody screen indicates no serologic evidence of past or current infection with Hepatitis C Virus. Patients with unexplained liver disease who are immunocompromised or suspected of having acute Hepatitis C infection may benefit from Nucleic Acid Test (SANDER) for Hepatitis C Viral RNA to confirm Hepatitis C status. Blood BLOOD SPECIMEN / Unknown Lab Venipuncture / Unknown 01/26/2019 10:55 AM HEALTH AND SAFETY INSTRUCTOR 01/26/2019 12:00 PM HEALTH AND SAFETY INSTRUCTOR Silas Zhao MD LAB - CHEMISTRY [place] [address], [facility] [phone] from Last 3 Months or Most Recently Relevant to Health Maintenance Insurance MEDICARE MEDICAID - [place] MEDICARE MEDICAID - [facility] Advance Directives * Full Code (Latest Code Status on File) Date Activated Date Inactivated Comments 01/26/2019 12:25 AM 01/29/2019 4:30 PM Care Teams Crew Chief Relationship Specialty Start Date End Date Ashley Edmonds MD [address] [place] [phone] PCP - General 01/27/19
--- OUTSIDE RECORDS SUMMARY | 2024-08-01 19:54 | XMS_ITS | Clinical Summary ---
Author Organization [facility] Address [address] [place] [address] Phone Care Team Providers Care Banquet Line Cook Name Role Phone Andrey Boyd MD Primary Care Provider [phone] Caitlin Patel MD Unavailable Allergies Active Allergy Reactions Criticality Noted Date Comments Food Unknown 01/25/2019 Meloxicam Other (see Comments) 08/25/2021 Patient stated that it stops his breathing Norepinephrine Other (see Comments) 01/25/2019 Oat Grain (Diagnostic) Rash Medium 01/25/2019 Pork-Derived Products Other (see Comments) 01/25/2019 Per patient causes worms Rice Unknown 01/25/2019 Soybean-Containing Drug Products Other (see Comments) 01/25/2019 Pinon Extract Rash Medium 01/25/2019 Wheat Rash Medium 01/25/2019 Medications FLUoxetine (PROzac) 20 MG Capsule 2 Active OLANZapine (ZYPREXA) 20 MG Tablet 2 Active traZODone (DESYREL) 50 MG Tablet 2 Active famotidine (PEPCID) 20 MG TabletIndication s:Gastroesophage al reflux disease with esophagitis without hemorrhage Take 1 Tablet by mouth 2 times daily. 180 Tablet 3 3 Active Diclofenac Sodium (VOLTAREN) 1 % GelIndications:A rthritis APPLY 2 GRAMS TOPICALLY TO THE AFFECTED AREA FOUR TIMES A DAY NEEDED FOR JOINT PAIN 100 g 1 3 Active ergocalciferol (VITAMIN D) 99871 UNIT CapsuleIndicatio ns:Low serum vitamin D TAKE 1 CAPSULE BY MOUTH EVERY WEEK 4 Capsule 2 3 Active Active Problems Problem Noted Date Diagnosed Date Arthritis 10/20/2021 Schizophrenia, unspecified 08/25/2021 Gastroesophageal reflux disease with esophagitis 08/25/2021 Immunizations Immunization Administration Dates Next Due Covid-19, Mrna, Lnp-s, Bival ent, Moderna, 50 Mcg or 25 mcg dose 12/28/2021 Covid-19, Mrna, Lnp-s, Pf, 1 00 Mcg Or 50 Mcg Dose (MODERNA) 02/01/2021 Hepatitis A Vaccine 01/29/2018 Influenza Vaccine, MDCK,quadrivalent, pres free 11/23/2021 Influenza, Seasonal, Injectable, Undefined 04/05 Family History Medical History Relation Name Comments No Known Problems Father No Known Problems Mother Relation Name Status Comments Father Alive Mother Alive Social History Tobacco Use Types Packs/Day Years Used Date Smoking Tobacco: Every Day Cigarettes 0.5 25 Started: 08/17/1999 Smokeless Tobacco: Former Tobacco Cessation:Ready to Q uit: No; Counseling Given: No Comments:4 cigarettes a day Alcohol Use Standard Drinks/Week Comments Not Currently 0 (1 standard drink = 0.6 oz pur e alcohol) PHQ-2 Answer Date Recorded Total Score - Questions 1-9 0 08/16 Sex and Gender Information Value Date Recorded Sex Assigned at Not on file Legal Sex Male 9:48 AM CDT Gender Identity Not on file Sexual Orientation Not on file Last Filed Vital Signs Vital Sign Reading Time Taken Comments Blood Pressure 124/84 05/14/2022 2:22 PM LEAN PROCESS DEPLOYMENT CONSULTANT Pulse 81 05/14/2022 2:22 PM LEAN PROCESS DEPLOYMENT CONSULTANT Temperature 36.7 C (98 F) 05/14/2022 2:22 PM LEAN PROCESS DEPLOYMENT CONSULTANT Respiratory Rate 20 05/14/2022 2:22 PM LEAN PROCESS DEPLOYMENT CONSULTANT Oxygen Saturation 98% 05/14/2022 2:22 PM LEAN PROCESS DEPLOYMENT CONSULTANT Inhaled Oxygen Concentration - - Weight 148.3 kg (327 lb) 05/14/2022 2:22 PM LEAN PROCESS DEPLOYMENT CONSULTANT Height 182.9 cm (6') 05/14/2022 2:22 PM LEAN PROCESS DEPLOYMENT CONSULTANT Body Mass Index 44.35 05/14/2022 2:22 PM LEAN PROCESS DEPLOYMENT CONSULTANT Plan of Treatment Health Maintenance Due Date Last Done Comments Hepatitis B Immunization (3 of 3 - Hep B Twinrix 3-dose series) 02/14/2023 09/14/2022, 08/03/2022 Influenza Immunization (#1) 2023 11/23/2021, 0 04/05/2017 SARS-COV-2 Immunization ( season) 2023 10/18/2022, 12/28/2021, 02/01/2021, Additional history exists Respiratory Syncytial Virus (RSV) Immunization (Adult) (1 - 1-dose 75+ series) 2060 Hepatitis C Virus (HCV) Screening Completed 01/26/2019 DTaP/Tdap/Td Immunization Discontinued 08/03/2022 TdaP Immunization Completed 08/03/2022 Pneumococcal Immunization Combined Aged Out 08/12/2022 No longer eligible based on patient's age to complete this topic Meningococcal Immunization (ACWY) Aged Out 10/23/2022 No longer eligible based on patient's age to complete this topic Rotavirus Immunization Aged Out No lo nger eligible based on patient's age to complete this topic Insurance MEDICARE C [employer] [place]ID [place] Care Teams Banquet Line Cook Relationship Specialty Start Date End Date Andrey Boyd MD [address] [place] [address] PCP - General Internal Medicine 08/25/21 Caitlin Patel MD [address] [address] Consulting Physician Psychiatry 08/25/21
--- OUTSIDE RECORDS SUMMARY | 2024-08-01 19:54 | XMS_ITS ---
Author Organization [facility] Address [address] [place] [address] Care Team Providers Care Chicken And Fish Cleaner Name Role Phone Nasreen Hook Primary Care Provider Ignacia Lawton Unavailable [phone] REASON FOR VISIT 3 Month Psych F/U & Med Refill Medications Medication SIG (Take, Route, Frequency, Duration) Notes Start Date End Date Status Benztropine Mesylate 1 MG 1.5 tablet at bedtime Orally Once a day for 30 days Active PROzac 40 MG 2 capsule Orally Onc e a day for 30 days Active ZyPREXA 20 MG 1 tablet at bedtime Orally Once a day for 30 days Active traZODone HCl 100 MG 1 tablet at bedtime Orally Once a day for 30 days Active Famotidine 20 MG 2 tablet Orally Once a day Active OLANZapine 2.5 MG 1 tablet Orally Once a day for 30 days 07/11/2023 Active OLANZapine 2.5 MG 1 tablet as needed Orally Once a day for 30 days As needed 10/03/2023 Active QUEtiapine Fumarate 50 MG 1 tablet morni ng and afternoon Orally twice a day for 30 days Active Social History Sex Assigned At : Social History Observation Description Sex Assigned At Female Encounters Encounter Location Date Provider Diagnosis [facility] [address] [place] [address] 03/12/2024 Nasreen Hook Paranoid schizophrenia F20.0 Assessments Encounter Date Diagnosis (ICD Code) Assessment Notes Treatment Notes Treatment Clinical Notes Section Notes 03/12/2024 Paranoid schizophrenia (ICD-10 - F20.0) Plan Of Treatment No Information Progress Notes * Mati SINGHDOB:[birth year] (38 yo M)Acc No.[id number]:03/12/2024 UNLOCKED PROGRESS NOTE Patient: Mati CHRIS Provider: Edmond Hook DNP, ZENAIDA, SANDRA :1985 A ge:38 Y S ex:Male(T) Date:03/12/2024 Phone: Address:[address] [place] [address] Subjective: * Chief Complaints: * 1 . 3 Month Psych F/U & Med Refill. * Medical History: * Medications: T aking ZyPREXA 20 MG Tablet 1 tablet at bedtime Orally Once a day , Taking traZODone HCl 100 MG Tablet 1 tablet at bedtime Orally Once a day , Taking Benztropine Mesylate 1 MG Tablet 1.5 tablet at bedtime Orally Once a day , Taking PROzac 40 MG Capsule 2 capsule Orally Once a day , Taking QUEtiapine Fumarate 50 MG Tablet 1 tablet morning and afternoon Orally twice a day , Taking OLANZapine 2.5 MG Tablet 1 tablet Orally Once a day , Taking OLANZapine 2.5 MG Tablet 1 tablet as needed Orally Once a day As needed, Taking Famotidine 20 MG Tablet 2 tablet Orally Once a day Objective: * Vitals: Assessment: * Assessment: 1. P aranoid schizophrenia - F20.0 (Primary) Plan: * Treatment: * * Electronic signature of Andree Hook on 08/01/2024 at 07:53 PM CDT Sign off status: Pending * Provider: Edmond Hook DNP, ZENAIDA, NETEZZA DEVELOPER Date: 05/13/2023 Generated for Printing/Faxing/eTransmitting on: 0 08/01/2024 07:53 PM CDT
--- OUTSIDE RECORDS SUMMARY | 2024-08-01 19:54 | XMS_ITS | CONTINUITY OF CARE DOCUMENT ---
Author Name pawan villalta Address Unknown Organization [facility] Address [address] [place] [address] Phone [phone] Care Team Providers Care R&D Engineer Name Role Phone Dominguez MCCRACKEN, Blanca Unavailable LADAN HUNT Unavailable LADAN HUNT Unavailable INSURANCE PROVIDERS Payer name Policy type / Coverage type [place] red democrat ID HE[employer] AND FAMILY SERVICES Medicaid 1 [id number] [place] MED[place] Medicare [id number]
--- OUTSIDE RECORDS SUMMARY | 2024-08-01 19:54 | XMS_ITS | Encounter Summary ---
Author Organization [facility] Address [address] [place] [address] Phone Care Team Providers Care Scruff Worker Name Role Phone Andrey Boyd MD Primary Care Provider [phone] Caitlin Patel MD Unavailable Reason for Visit * Reason Comments Medication Refill Encounter Details Date Type Department Care Team (Late st Contact Info) Description 06/20[facility] - Sujit [address] [place] [phone] Andrey Boyd MD [address] [place] [address] Medication Refill Social History Tobacco Use Types Packs/Day Years Used Date Smoking Tobacco: Every Day Cigarettes 0.5 25 Started: 08/17/1999 Smokeless Tobacco: Former Comments:4 cigarettes a day Alcohol Use Standard Drinks/Week Comments Not Currently 0 (1 standard drink = 0.6 oz pur e alcohol) PHQ-2 Answer Date Recorded Total Score - Questions 1-9 0 08/16 Sex and Gender Information Value Date Recorded Sex Assigned at Not on file Legal Sex Male 9:48 AM CDT Gender Identity Not on file Sexual Orientation Not on file documented as of this encounter Miscellaneous Notes * Telephone Encounter - Anoop Gavin RN - 06/24/2023 8:16 AM CDT Attempted to contact patient. No answer, left message. Letter mailed--pt needs appointment scheduled prior to refill * Telephone Encounter - Anoop Gavin RN - 06/21/2023 8:10 AM CDT Attempted to contact patient to schedule year appointment. No answer, left message * Telephone Encounter - Anoop Gavin RN - 06/20/2023 10:23 AM CDT Attempted to contact patient to schedule year appointment. No answer, left message documented in this encounter Plan of Treatment Not on file documented as of this encounter Visit Diagnoses Diagnosis Low serum vitamin D documented in this encounter Additional Health Concerns Infection Onset Date Last Indicated Resolved Time Respiratory Rule-Out 10/28/2023 10/28/2023 024 9:21 AM CDT documented as of this encounter Care Teams Scruff Worker Relationship Specialty Start Date End Date Andrey Boyd MD [address] [place] [address] PCP - General Internal Medicine 08/25/21 Caitlin Patel MD [address] [address] Consulting Physician Psychiatry 08/25/21 documented as of this encounter
--- OUTSIDE RECORDS SUMMARY | 2024-08-01 19:54 | XMS_ITS | Referral Summary ---
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 Gender Identity Not on file Sexual Orientation Not on file Last Filed Vital Signs Vital Sign Reading Time Taken Comments Blood Pressure 122/80 02/06/2022 12:13 PM TILE AND MARBLE INSTALLER Pulse 76 02/06/2022 12:13 PM TILE AND MARBLE INSTALLER Temperature 36.9 C (98.4 F) 02/06/2022 12:13 PM TILE AND MARBLE INSTALLER Respiratory Rate 16 02/06/2022 12:13 PM TILE AND MARBLE INSTALLER Oxygen Saturation 98% 02/06/2022 12:13 PM TILE AND MARBLE INSTALLER Inhaled Oxygen Concentration - - Weight 135.6 kg (299 lb) 02/06/2022 12:13 PM TILE AND MARBLE INSTALLER Height 182.9 cm (6') 02/06/2022 12:13 PM TILE AND MARBLE INSTALLER Body Mass Index 40.55 02/06/2022 12:13 PM TILE AND MARBLE INSTALLER Plan of Treatment Not on file Insurance MEDICARE ADVANTAGE Member Subscriber Plan / Payer (Ef fective 2024-Present) Name:Mati Singh Relation to Subscriber:Self Name:Mati Singh Payer ID:[id number] (NAIC) Type:[facility] MEDICARE Address: [place] [phone] MEDICARE ADVANTAGE Member Subscriber Plan / Payer (Ef fective 2024-Present) Name:Mati Singh Relation to Subscriber:Self Name:Mati Singh Payer ID:[id number] (NAIC) Type:[facility] MEDICARE Address: [place] [id number] Care Teams Trust Advisor Relationship Specialty Start Date End Date Andrey Boyd MD [address] [place] [address] PCP - General Internal Medicine 02/06/22
[2024-08-01 20:34] VITALS: BP 147/95; PULSE 90; RESP 16; TEMP 36.9; O2SAT 97
--- NOTE | 2024-08-01 21:00 | PC.NURSE ---
2100-PATIENT IS REQUESTING PREVIOUSLY ORDERED OUTPATIENT MRI/CT BE DONE TODAY PATIENT HAS A LOT GOING ON AND GENERALLY DON'T FEEL WELL .
--- OUTSIDE RECORDS SUMMARY | 2024-08-01 21:35 | XMS_ITS | Clinical Summary ---
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 Gender Identity Not on file Sexual Orientation Not on file Obstetrics History Last Filed Vital Signs Vital Sign Reading Time Taken Comments Blood Pressure 122/80 02/06/2022 12:13 PM DEICER ELEMENT WINDER MACHINE Pulse 76 02/06/2022 12:13 PM DEICER ELEMENT WINDER MACHINE Temperature 36.9 C (98.4 F) 02/06/2022 12:13 PM DEICER ELEMENT WINDER MACHINE Respiratory Rate 16 02/06/2022 12:13 PM DEICER ELEMENT WINDER MACHINE Oxygen Saturation 98% 02/06/2022 12:13 PM DEICER ELEMENT WINDER MACHINE Inhaled Oxygen Concentration - - Weight 135.6 kg (299 lb) 02/06/2022 12:13 PM DEICER ELEMENT WINDER MACHINE Height 182.9 cm (6') 02/06/2022 12:13 PM DEICER ELEMENT WINDER MACHINE Body Mass Index 40.55 02/06/2022 12:13 PM DEICER ELEMENT WINDER MACHINE Plan of Treatment Health Maintenance Due Date [...] this topic Insurance MEDICARE ADVANTAGE [place] [address] Care Teams Stock Or Delivery Clerk Relationship Specialty Start Date End Date Andrey Boyd MD [address] [address] PCP - General Internal Medicine 02/06/22
--- OUTSIDE RECORDS SUMMARY | 2024-08-01 21:35 | XMS_ITS | Clinical Summary ---
Author Organization [facility] Address [address] [place] [address] Care Team Providers Care Senior Linux Engineer Name Role Phone Ashley Edmonds MD Primary Care Provider [phone] Source Comments [facility],non-owned Affiliates and Associated Physician Practices is amultiple site organization consisting of ambulatory clinics and hospital sitesin [place] and [place]. This disclosure is being madepursuant to the Care Everywhere program and may not contain all information available regarding this patient. Last updated 17.[facility] Allergies Active Allergy Reactions Criticality Noted Date Comments maple syrup [Other] Unknown 01/25/2019 Norepinephrine Dizziness 01/25/2019 Oat Grain (Diagnostic) Rash Medium 01/25/2019 Pork Derived Products Other 01/25/2019 Per patient causes worms Rice Unknown 01/25/2019 Soybean Allergy Cough 01/25/2019 [place] Rash Medium 01/25/2019 Wheat Bran Rash Medium [...] on file Legal Sex Male 5:34 AM INSIDE SALES ADVERTISING EXECUTIVE Gender Identity Not on file Sexual Orientation Not on file Occupation Industry Job Start Date Job End Date DISABLED Not on file Not on file Not on file Last Filed Vital Signs Vital Sign Reading Time Taken Comments Blood Pressure 128/62 01/29/2019 12:00 PM INSIDE SALES ADVERTISING EXECUTIVE Pulse 59 01/29/2019 12:00 PM INSIDE SALES ADVERTISING EXECUTIVE Temperature 36.7 C (98.1 F) 01/29/2019 12:00 PM INSIDE SALES ADVERTISING EXECUTIVE Respiratory Rate 20 01/29/2019 12:00 PM INSIDE SALES ADVERTISING EXECUTIVE Oxygen Saturation 96% 01/29/2019 12:00 PM INSIDE SALES ADVERTISING EXECUTIVE Inhaled Oxygen Concentration - - Weight 163.3 kg (360 lb) 01/26/2019 12:52 AM INSIDE SALES ADVERTISING EXECUTIVE Height 182.9 cm (6') 01/26/2019 12:46 AM INSIDE SALES ADVERTISING EXECUTIVE Body Mass Index 48.82 01/26/2019 12:46 AM INSIDE SALES ADVERTISING EXECUTIVE Plan of Treatment Health Maintenance Due Date [...] RFLX NAAT QUANT Routine 01/26/2019 10:55 AM INSIDE SALES ADVERTISING EXECUTIVE HIV-1 HIV-2 ANTIGEN/ANTIBODY Routine 01/26/2019 10:55 AM INSIDE SALES ADVERTISING EXECUTIVE from Last 3 Months or Most Recently Relevant to Health Maintenance Results * HIV-1 HIV-2 ANTIGEN/ANTIBODY (01/26/2019 10:55 AM INSIDE SALES ADVERTISING EXECUTIVE) HIV Antigen/Antibod y 1 & 2 Non-reacti ve Non-react nessa 01/26/2019 1:02 PM INSIDE SALES ADVERTISING EXECUTIVE [facility] Comment: Neither HIV-1 p24 Antigen nor HIV-1/HIV-2 Antibodies are detected. Blood BLOOD SPECIMEN / Unknown Lab Venipuncture / Unknown 01/26/2019 10:55 AM INSIDE SALES ADVERTISING EXECUTIVE 01/26/2019 12:00 PM INSIDE SALES ADVERTISING EXECUTIVE Silas Zhao MD LAB - HEMATOLOGY ORDERABLES Harriet l Result [address] [phone] * HEPATITIS C AB SCREEN RFLX NAAT QUANT (01/26/2019 10:55 AM INSIDE SALES ADVERTISING EXECUTIVE) Hepatitis C Antibody Non-react nessa Non-reac tive 01/26/2019 1:02 PM INSIDE SALES ADVERTISING EXECUTIVE [facility] Comment: Hepatitis C Antibody screen indicates [...] Lab Venipuncture / Unknown 01/26/2019 10:55 AM INSIDE SALES ADVERTISING EXECUTIVE 01/26/2019 12:00 PM INSIDE SALES ADVERTISING EXECUTIVE Silas Zhao MD LAB - CHEMISTRY [place]AB[place] [address], [facility] [phone] from Last 3 Months or Most Recently Relevant to Health Maintenance Insurance MEDICARE MEDICAID - [place] MEDICARE MEDICAID - [facility] Advance Directives * Full Code (Latest Code Status on File) Date Activated Date Inactivated Comments 01/26/2019 12:25 AM 01/29/2019 4:30 PM Care Teams Senior Linux Engineer Relationship Specialty Start Date End Date Ashley Edmonds MD [address] [place] [phone] PCP - General 01/27/19
--- OUTSIDE RECORDS SUMMARY | 2024-08-01 21:35 | XMS_ITS | Clinical Summary ---
Author Organization [facility] Address [address] [place] [address] Phone Care Team Providers Care Tank Builder Helper Name Role Phone Andrey Boyd MD Primary Care Provider [phone] Caitlin Patel MD Unavailable Allergies Active Allergy Reactions Criticality Noted Date Comments Food Unknown 01/25/2019 Meloxicam Other (see Comments) 08/25/2021 Patient stated that it stops his breathing Norepinephrine Other (see Comments) 01/25/2019 Oat Grain (Diagnostic) Rash Medium 01/25/2019 Pork-Derived Products Other (see Comments) 01/25/2019 Per patient causes worms Rice Unknown 01/25/2019 Soybean-Containing Drug Products Other (see Comments) 01/25/2019 Climax Extract Rash Medium 01/25/2019 Wheat Rash Medium [...] g 1 3 Active ergocalciferol (VITAMIN D) [address]3415 UNIT CapsuleIndicatio ns:Low serum vitamin D TAKE [...] Comments Blood Pressure 124/84 05/14/2022 2:22 PM COMBAT INFORMATION CENTER OFFICER Pulse 81 05/14/2022 2:22 PM COMBAT INFORMATION CENTER OFFICER Temperature 36.7 C (98 F) 05/14/2022 2:22 PM COMBAT INFORMATION CENTER OFFICER Respiratory Rate 20 05/14/2022 2:22 PM COMBAT INFORMATION CENTER OFFICER Oxygen Saturation 98% 05/14/2022 2:22 PM COMBAT INFORMATION CENTER OFFICER Inhaled Oxygen Concentration - - Weight 148.3 kg (327 lb) 05/14/2022 2:22 PM COMBAT INFORMATION CENTER OFFICER Height 182.9 cm (6') 05/14/2022 2:22 PM COMBAT INFORMATION CENTER OFFICER Body Mass Index 44.35 05/14/2022 2:22 PM COMBAT INFORMATION CENTER OFFICER Plan of Treatment Health Maintenance Due Date [...] MEDICARE C [employer] [place] Care Teams Tank Builder Helper Relationship Specialty Start Date End Date Andrey Boyd MD [address] [place] [address] PCP - General Internal Medicine 08/25/21 Caitlin Patel MD [address] [address] Consulting Physician Psychiatry 08/25/21
--- OUTSIDE RECORDS SUMMARY | 2024-08-01 21:35 | XMS_ITS | CONTINUITY OF CARE DOCUMENT ---
Author Name pawan villalta Address Unknown Organization [facility] Address [address] [address] [facility] [address] [place] [address] Phone [phone] Care Team Providers Care Denture Technician Name Role Phone Dominguez MCCRACKEN, Blanca Unavailable [phone] LADAN HUNT Unavailable [phone] LADAN HUNT Unavailable [phone] INSURANCE PROVIDERS Payer name Policy type / Coverage type [place] red green party ID HEALTHCARE AND FAMILY SERVICES Medicaid 1 [id number] [place] MED[place]ARE Medicare [id number]
--- OUTSIDE RECORDS SUMMARY | 2024-08-01 21:35 | XMS_ITS | Referral Summary ---
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 SALES REPRESENTATIVE Gender Identity Not on file Sexual Orientation Not on file Last Filed Vital Signs Vital Sign Reading Time Taken Comments Blood Pressure 122/80 02/06/2022 12:13 PM PHARMACEUTICAL SALES REPRESENTATIVE Pulse 76 02/06/2022 12:13 PM PHARMACEUTICAL SALES REPRESENTATIVE Temperature 36.9 C (98.4 F) 02/06/2022 12:13 PM PHARMACEUTICAL SALES REPRESENTATIVE Respiratory Rate 16 02/06/2022 12:13 PM PHARMACEUTICAL SALES REPRESENTATIVE Oxygen Saturation 98% 02/06/2022 12:13 PM PHARMACEUTICAL SALES REPRESENTATIVE Inhaled Oxygen Concentration - - Weight 135.6 kg (299 lb) 02/06/2022 12:13 PM PHARMACEUTICAL SALES REPRESENTATIVE Height 182.9 cm (6') 02/06/2022 12:13 PM PHARMACEUTICAL SALES REPRESENTATIVE Body Mass Index 40.55 02/06/2022 12:13 PM PHARMACEUTICAL SALES REPRESENTATIVE Plan of Treatment Not on file Insurance MEDICARE ADVANTAGE Member Subscriber Plan / Payer (Ef fective 2024-Present) Name:Mati Singh Relation to Subscriber:Self Name:Mati Singh Payer ID:[id number] (NAIC) Type:[facility] MEDICARE Address: [place] [id number] MEDICARE ADVANTAGE Member Subscriber Plan / Payer (Ef fective 2024-Present) Name:Mati Singh Relation to Subscriber:Self Name:Mati Singh Payer ID:[id number] (NAIC) Type:[facility] MEDICARE Address: [place] [id number] Care Teams Surveyor Helper Rod Relationship Specialty Start Date End Date Andrey Boyd MD [address] [place] [address] PCP - General Internal Medicine 02/06/22
--- OUTSIDE RECORDS SUMMARY | 2024-08-01 21:35 | XMS_ITS | Encounter Summary ---
Author Organization [facility] Address [address] [place] [address] Phone Care Team Providers Care Oyster Worker Name Role Phone Andrey Boyd MD Primary Care Provider [phone] Caitlin Patel MD Unavailable Reason for Visit * Reason Comments Medication Refill Encounter Details Date Type Department Care Team (Late st Contact Info) Description 06/20[facility] - [address] [place] [phone] Andrey Boyd MD [address] [place] [address] Medication Refill Social History Tobacco [...] documented as of this encounter Care Teams Oyster Worker Relationship Specialty Start Date End Date Andrey Boyd MD [address] [place] [address] PCP - General Internal Medicine 08/25/21 Caitlin Patel MD [address] [address] Consulting Physician Psychiatry 08/25/21 documented as of this encounter
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
== END 2024-08-02 00:46 | disposition home or self-care (01) ==
PROVIDERS: Emergency Provider Physician Assistant
DX: M25.551 Pain in right hip (principal); M25.561 Pain in right knee; R51.9 Headache, unspecified; V89.2XXA Person injured in unspecified motor-vehicle accident, traffic, initial encounter; F20.9 Schizophrenia, unspecified
CPT/HCPCS: 70450; 72125; 73502; 73562; 99284